=== PATIENT | female | born 1960 | race Caucasian/White ===

== ENCOUNTER 2017-08-06 05:41 | Outpatient (CLI) | payer BC ==
[~2017-08-06] VITALS: Ht 160 cm; Wt 104.3 kg
[2017-08-06] MEDS ORDERED: AMLO5TAB2 PO (15:26)
[2017-08-06] MEDS ORDERED: LISI1TAB8 PO (15:26)
[2017-08-06] MEDS ORDERED: SIMV20TA3 PO (15:26)
[2017-08-06] MEDS ORDERED: LEVO50TA6 PO (15:26)
== END 2017-08-06 15:27 ==
LOC: PREOP 05:41
PROVIDERS: ATTEND Surgery
DX: Z01.818 Encounter for other preprocedural examination (principal); Z12.11 Encounter for screening for malignant neoplasm of colon

== ENCOUNTER → 2018-07-15 | Outpatient (CLI) | payer BC ==
[~2018-07-15] MED LIST: AMLO5TAB7 PO; LEVO50TA6 PO; LISI1TAB8 PO; SIMV20TA3 PO
--- NOTE | 2018-07-15 19:35 | Diagnostic Imaging Report ---
INDICATION: Itchiness in the inframammary right breast as well as questionable lump in right axilla. Correlation made with prior mammogram from 10/06/2015. 2-D and 3-D bilateral diagnostic mammography was performed with computer-aided Detection (CAD) system. FINDINGS: Scattered fibroglandular densities are identified bilaterally. BB marker is placed in the right axilla over the area of questionable lump. No underlying abnormality is seen. Both breasts parenchymal pattern appears stable. No new mass is seen. There are benign nodules in the central right breast which appear stable. There are no suspicious microcalcifications. IMPRESSION: No mammographic features suspicious for malignancy are identified. Even so, directed sonographic interrogation of the right axilla at the area of lump as well as in the inframammary right breast at the area of itching is recommended and will be performed today. ACR BI-RADS Category 0: Incomplete. (Needs additional imaging evaluation). Result letter will be mailed to the patient. Note: At least 10% of breast cancer is not imaged by mammography. Dictated by: Dictated on workstation # [id number]
--- NOTE | 2018-07-15 20:11 | Diagnostic Imaging Report ---
INDICATION: Lump in the right axilla and itching in the right inframammary location. COMPARISON: Correlation is made with diagnostic mammogram of earlier the same day. EXAMINATION: Sonographic interrogation of the area of questionable lump in the right axilla was performed. FINDINGS: No sonographic abnormality is seen. No discrete mass or fluid collection is identified. In addition, evaluation of the 4-8 o'clock location of the right breast was performed at the area of itching. No discrete mass or fluid collection is identified. IMPRESSION: No sonographic abnormality is seen. Clinical followup is recommended. ACR BI-RADS Category 1: Negative. Result letter will be mailed to the patient. Note: At least 10% of breast cancer is not imaged by mammography. Dictated by: Dictated on workstation # [id number]
== END ==
LOC: RAD 13:42
PROVIDERS: ATTEND Registered Nurse
DX: N63.31 Unspecified lump in axillary tail of the right breast (principal); N64.59 Other signs and symptoms in breast
CPT/HCPCS: 77066

== ENCOUNTER → 2018-08-25 | Outpatient (CLI) | payer BC ==
[~2018-08-25] VITALS: Ht 160 cm; Wt 104.8 kg
[~2018-08-25] MED LIST changes: -AMLO5TAB7 PO; +CATHETER FLUSH 10 ML SYR IV PRN; -LEVO50TA6 PO; -LISI1TAB8 PO; +REGADENOSON 0.4 MG/5 ML SYR (LEXISCAN) IV ONE; -SIMV20TA3 PO
[2018-08-25 09:18] VITALS: BP 166/93
--- NOTE | 2018-08-27 14:49 | STRESS TEST ---
DATE OF SERVICE: 08/25/2018 RESTING AND POST REGADENOSON TECHNETIUM-99M TETROFOSMIN SPECT CT IMAGING CLINICAL DIAGNOSIS: Palpitations. ORDERING PHYSICIAN: Dr. Layne. PRIMARY PHYSICIAN: [facility]. Baseline images were carried out after injection of 10.63 mCi of technetium-99m Tetrofosmin. This was followed by 0.4 mg of Regadenoson and 31.1 mCi of technetium-99m Tetrofosmin for stress imaging. The electrocardiogram showed sinus rhythm at baseline and it did not change significantly with the Regadenoson infusion. The patient tolerated the procedure well. Review of images at rest and following stress does not indicate any significant perfusion defects consistent with significant myocardial ischemia or infarction. Gated images show normal global left ventricular systolic function and normal regional wall motion. Left ventricular ejection fraction is calculated to be 70%. Left ventricular end diastolic volume is 48 mL. The TID is absent (1.04). CONCLUSIONS: 1. No evidence of any significant myocardial ischemia or infarction on this study. 2. Normal regional wall motion. 3. Normal global left ventricular systolic function with a calculated ejection fraction of 70%. Job ID: [id number] DocumentID: [id number] Dictated Date: 08/27/2018 13:50:05 Roll Inspector Date: 08/27/2018 14:49:01 Dictated By: KATHERINE LAYNE MD, MA, FACP, FACC,
== END ==
LOC: CARD 08:02
PROVIDERS: ATTEND Internal Medicine Cardiovascular Disease
DX: R00.2 Palpitations (principal); R73.01 Impaired fasting glucose; I10 Essential (primary) hypertension; E78.5 Hyperlipidemia, unspecified
CPT/HCPCS: 78452; 93017

== ENCOUNTER → 2020-05-15 | Outpatient (CLI) | payer BC ==
[~2020-05-15] MED LIST changes: +AMLO-250 PO; -CATHETER FLUSH 10 ML SYR IV PRN; +LEVO50TA6 PO; +LISI1TAB46 PO; -REGADENOSON 0.4 MG/5 ML SYR (LEXISCAN) IV ONE; +SIMV20TA26 PO
--- NOTE | 2020-05-16 14:31 | Diagnostic Imaging Report ---
INDICATION: Routine screening. COMPARISON: 07/15/2018 and 10/06/2015. TECHNIQUE: 2D and 3D bilateral screening mammography was performed with CAD. FINDINGS: Scattered fibroglandular densities are identified bilaterally. The circumscribed benign-appearing nodules in the right breast are stable. No spiculated mass or malignant appearing microcalcifications are seen. The axillae are unremarkable. IMPRESSION: No mammographic features suspicious for malignancy are identified. ACR BI-RADS Category 2: Benign findings. Result letter will be mailed to the patient. Note: At least 10% of breast cancer is not imaged by mammography. Dictated by: Dictated on workstation # [id number]
== END ==
LOC: RAD 14:30
PROVIDERS: ATTEND Nurse Practitioner Family
DX: Z12.31 Encounter for screening mammogram for malignant neoplasm of breast (principal)
CPT/HCPCS: 77063; 77067

== ENCOUNTER → 2020-05-23 | Outpatient (CLI) | payer BC ==
--- NOTE | 2020-05-23 14:34 | Diagnostic Imaging Report ---
INDICATION: Asymptomatic postmenopausal female. COMPARISON: None. FINDINGS: AP Spine L1-L4: [BMD (g/cm2): 1.037] [T-Score: -1.4] [Z-Score: -1.2] LT Hip Neck: [BMD (g/cm2): 0.993] [T-Score: -0.3] [Z-Score: -0.2] LT Hip Total: [BMD (g/cm2):1.098] [T-Score:0.7] [Z-Score: 0.9] RT Hip Neck: [BMD (g/cm2):0.891] [T-Score:-1.1] [Z-Score:-0.5] RT Hip Total: [BMD (g/cm2):0.989] [T-score:-0.1] [Z-Score:0.0] *Indicates significant change from prior examination based on 95% confidence level. World Health Organization criteria for BMD interpretation classify patients as Normal (T-score at or above -1.0), Osteopenic (T-score between -1.0 and -2.5) or Osteoporotic (T-score at or below -2.5). LIMITATIONS AND MODIFICATION: None. FRACTURE RISK (FRAX SCORE): The ten year probability of (%): Major Osteoporotic Fracture: [NA] Hip Fracture: [NA] IMPRESSION: 1. Osteopenia (Low bone mass). 2. Baseline examination. 3. See below National Osteoporosis Foundation guidelines on when to potentially initiate pharmacologic therapy. Based on the National Osteoporosis Foundation Guidelines, pharmacologic treatment should be initiated in any of the following, unless clinical conditions suggest otherwise: * Any patient with prior fragility fracture of the hip or vertebrae. A spine fracture indicates 5X risk for subsequent spine fracture and 2X risk for subsequent hip fracture. * Osteoporosis (T-score <-2.5). * Postmenopausal women and men age 50 and older with low bone mass/osteopenia (T-score between -1.0 and -2.5) by DXA and 10-year major osteoporotic fracture greater than 20% or a 10-year probability of hip fracture greater than 3%. These fracture risks are supplied above in the FRAX score, if applicable. * Clinician judgement and/or patient preferences may indicate treatment for people with 10-year fracture probabilities above or below these levels. Dictated by: Dictated on workstation # [id number]
== END ==
LOC: RAD 13:00
PROVIDERS: ATTEND Nurse Practitioner Family
DX: M85.89 Other specified disorders of bone density and structure, multiple sites (principal); Z78.0 Asymptomatic menopausal state
CPT/HCPCS: 77080

== ENCOUNTER 2020-08-31 05:28 | Outpatient (RCR) | payer BC, OTHER ==
[~2020-08-31] VITALS: Ht 157.5 cm; Wt 104.4 kg
[~2020-08-31 05:28] MED LIST changes: +CALC-823 PO; +LEVO25TA5 PO; +MULT-974 PO; +OMG1KC PO; +SIMV40TA25 PO
== END 2020-08-31 13:02 | disposition home or self-care (01) ==
LOC: PREOP 05:28
PROVIDERS: ATTEND Surgery
DX: Z01.812 Encounter for preprocedural laboratory examination (principal); Z86.010 Personal history of colon polyps; Z20.822 Contact with and (suspected) exposure to COVID-19
CPT/HCPCS: 87635

== ENCOUNTER 2020-09-04 08:48 | Day surgery (SDC) | payer BC, OTHER ==
[~2020-09-04] VITALS: Ht 157 cm; Wt 104.0 kg
[2020-09-04] MEDS ORDERED: LACTATED RINGERS 1,000 ML IV ONE (08:52)
[2020-09-04] MEDS ORDERED: LACTATED RINGERS 1,000 ML IV STA (08:58)
[2020-09-04 09:11] VITALS: BP 178/103
--- NOTE | 2020-09-04 10:10 | Progress Note-Pre Operative ---
Pre-Operative Progress Note H&P Reviewed The H&P was reviewed, patient examined and no changes noted. Time Seen by Provider: 10:09 Date H&P Reviewed: Sep 04, 2020 Time H&P Reviewed: 10:09 Pre-Operative Diagnosis: Hx of Polyps ANDERSON DIAZ DO Sep 04, 2020 10:10
[2020-09-04] MEDS ORDERED: PROPOFOL INJECTION 50 ML IV ONE (10:21)
[2020-09-04 10:50] VITALS: BP 140/62
[2020-09-04 10:55] VITALS: BP 133/66
--- NOTE | 2020-09-04 11:16 | Progress Note-Post Operative ---
Post-Operative Progess Note Surgeon (s)/Oil Field Operator (s) Surgeon ANDERSON DIAZ DO Oil Field Operator: KIM Spann Pre-Operative Diagnosis Hx of Polyps Post-Operative Diagnosis polyp diverticula internal hemorrhoids Procedure & Operative Findings Date of Procedure 09/04/20 Procedure Performed/Findings colon with snare Anesthesia Type IV sedation by ASSET PROTECTION OFFICER Estimated Blood Loss Estimated blood loss (mL): scant Specimens/Packing Specimens Removed sigmoid polyp ANDERSON DIAZ DO Sep 04, 2020 11:16
--- NOTE | 2020-09-04 11:16 | Endoscopy Discharge Instruct ---
Endo Procedure/Findings Findings 1.: Polyp 2.: Diverticulosis 3.: Internal Hemorrhoids Discharge Instructions - Activity: You might feel a little sleepy until tomorrow. This is due to the medicine you received to relax you. Until tomorrow, you should: NOT drive a car, operate machinery or power tools. NOT drink any alcoholic beverages. NOT make any important decisions or sign importortant papers. Do not return to work until tomorrow, unless otherwise instructed. Resume previous activities tomorrow. Diet: Start by taking liquids. If you tolerate liquids, advance to solid food. 1.: Colonscopy in 5 years Notify Physician - If you experience excessive bleeding, unusual abdominal pain, fever, or chest pain, contact your doctor immediately. ANDERSON DIAZ DO Sep 04, 2020 11:16
[2020-09-04 11:25] VITALS: BP 149/80
[2020-09-04 11:35] VITALS: BP 149/80
--- NOTE | 2020-09-04 12:42 | Anesthesia-General Post-Op ---
MAC Patient Condition Mental Status/LOC: Same as Preop Cardiovascular: Satisfactory Nausea/Vomiting: Absent Respiratory: Satisfactory Pain: Controlled Complications: Absent Post Op Complications Complications None Follow Up Care/Instructions Patient Instructions None needed. Anesthesiology Discharge Order Discharge Order Patient is doing well, no complaints, stable vital signs, no apparent adverse anesthesia problems. No complications reported per nursing. JOSIE MADRID CRNA Sep 04, 2020 12:42
--- NOTE | 2020-09-05 17:24 | OPERATIVE REPORT ---
DATE OF SERVICE: 09/04/2020 PREOPERATIVE DIAGNOSIS: History of colon polyps. POSTOPERATIVE DIAGNOSES: Colon polyps, diverticula, and internal hemorrhoids. PROCEDURES PERFORMED: Colonoscopy with snare polypectomy. SURGEON: Javid Paz DO. MUSIC THERAPY SPECIALIST: MS3. ANESTHESIA: IV sedation by the PAINTING MACHINE OPERATOR. SPECIMEN: Polyp from the sigmoid colon. BLOOD LOSS: Scant. FLUIDS: Per anesthesia. POSTOPERATIVE CONDITION: Stable. INDICATION FOR PROCEDURE: The patient is a 59-year-old female, who has a history of colon polyps and needed a colonoscopy. FINDINGS: The patient had one small polyp in the sigmoid colon as well as she had multiple diverticula and some very small internal hemorrhoids. PROCEDURE NOTE: After informed consent was obtained, the patient was brought to the endoscopy suite and placed in the bed in the left lateral decubitus position. She was administered IV sedation by the PAINTING MACHINE OPERATOR, who then monitored her vitals the entire time, heart rate, blood pressure and pulse ox and the scope was inserted, pushed all the way into about 150 cm, able to get all the way to cecum, took a picture of the appendiceal orifice, noted the ileocecal valve and then slowly withdrew the scope insufflating to look circumferentially at the stone looking the cecum, up the ascending colon to the hepatic flexure, then down the transverse colon and splenic flexure, into the descending colon. In the descending colon and sigmoid colon, saw some diverticula. In the sigmoid colon, I saw a polyp, did a snare polypectomy of this and then continued down into the rectum, retroflexed in the rectal vault, saw some minimal internal hemorrhoids, took a picture of this and then removed the scope. The patient tolerated the procedure. She was recovered in the endoscopy suite. Job ID: [id number] DocumentID: [id number] Dictated Date: 09/05/2020 13:02:18 Vp Of Technology Date: 09/05/2020 17:24:09 Dictated By: JAVID PAZ DO
== END 2020-09-04 11:35 | disposition home or self-care (01) ==
LOC: ENDO 08:48
PROVIDERS: ATTEND Surgery
DX: K63.5 Polyp of colon (principal); K57.30 Diverticulosis of large intestine without perforation or abscess without bleeding; K64.8 Other hemorrhoids; I10 Essential (primary) hypertension; E03.9 Hypothyroidism, unspecified; E78.5 Hyperlipidemia, unspecified; E66.01 Morbid (severe) obesity due to excess calories; Z68.41 Body mass index [BMI] 40.0-44.9, adult; Z79.899 Other long term (current) drug therapy; Z88.2 Allergy status to sulfonamides; Z88.5 Allergy status to narcotic agent; Z85.038 Personal history of other malignant neoplasm of large intestine; Z86.010 Personal history of colon polyps
CPT/HCPCS: 88305